=== PATIENT | female | born 1955 | race Caucasian/White ===

== ENCOUNTER → 2017-08-30 | Day surgery (SDC) | payer BC | LOC: MSO 07-26 07:46 | DX: Z12.11 Encounter for screening for malignant neoplasm of colon (principal); D12.8 Benign neoplasm of rectum; I10 Essential (primary) hypertension; F17.210 Nicotine dependence, cigarettes, uncomplicated; R12 Heartburn; E07.9 Disorder of thyroid, unspecified | CPT/HCPCS: 00810; J3010; J7120 ==

== ENCOUNTER 2018-03-31 08:39 | Emergency (ER) | payer BC ==
[~2018-03-31] VITALS: Ht 170.2 cm; Wt 95.9 kg
[2018-03-31] MEDS ORDERED: LEVOTHYROXINE100 MC1 PO (08:52)
[2018-03-31] MEDS ORDERED: AMLODIPINE BESYL5 MG PO (08:53)
[2018-03-31] MEDS ORDERED: ZOLPIDEM TART10 MG PO (08:53)
[2018-03-31] MEDS ORDERED: HCTZ 25MG25 MG PO (08:53)
[2018-03-31] MEDS ORDERED: CELEXA 20MG20 MG/TA1 PO (08:53)
[2018-03-31] MEDS ORDERED: ATORVASTATIN CA20 MG PO (08:53)
[2018-03-31] MEDS ORDERED: BENAZEPRIL40 MG PO (09:16)
[2018-03-31 09:45] LABS: EOS # 0.1 (0.04-0.40); EOS % 0.8 % (1.0-5.0); HEMATOCRIT 44.3 % (37.0-47.0); HEMOGLOBIN 14.2 g/dL (12.5-16.0); LYMPH# 1.9 (1.50-4.00); MEAN CELL VOLUME 99 fl (78-100); MEAN CORPUSCULAR HEMOGLOBIN 32 pg (27-31); MEAN CORPUSCULAR HGB CONC 32 g/dL (33-37); MEAN PLATELET VOLUME 9.6 fl (7.4-10.4); MONO # 0.8 (0.20-0.80); NEU # 5.7 (1.40-6.50); PLATELET COUNT 310 K/mm3 (130-400); RED BLOOD COUNT 4.46 M/mm3 (4.10-5.30); RED CELL DISTRIBUTION WIDTH 13.5 % (11.5-14.5); WHITE BLOOD COUNT 8.6 K/mm3 (4.8-10.8)
[2018-03-31 10:02] LABS: ALBUMIN 4.1 g/dL (3.5-5.0); BUN/CREATININE RATIO 24.3 (6.0-26.0); CALCIUM 9.8 mg/dL (8.4-10.2); TOTAL BILIRUBIN 0.6 mg/dL (0.2-1.3); TOTAL PROTEIN 7.4 g/dL (6.3-8.2)
[2018-03-31 10:06] LABS: URINE APPEARANCE CLEAR; URINE BILIRUBIN NEGATIVE (NEGATIVE); URINE BLOOD NEGATIVE (NEGATIVE); URINE COLOR YELLOW; URINE GLUCOSE NEGATIVE (NEGATIVE); URINE KETONE NEGATIVE (NEGATIVE); URINE LEUKOCYTE ESTERASE NEGATIVE (NEGATIVE); URINE NITRATE NEGATIVE (NEGATIVE); URINE PROTEIN(semi-quant) TRACE mg/dL (NEGATIVE); URINE UROBILINOGEN NORMAL (NORMAL); URINE WBC 0-1 /hpf (0-3)
[2018-03-31 10:07] LABS: URINE MUCUS PRESENT (NOT PRESENT)
[2018-03-31 10:09] LABS: CKMB ISOENZYME 1.3 ng/mL (0.6-3.5)
[2018-03-31 10:10] LABS: TROPONIN-I < 0.03 ng/mL (0.00-0.06)
[2018-03-31] MEDS ORDERED: CLONIDINE HYDR0.1 MG PO (13:03)
[2018-03-31] MEDS ORDERED: NORVASC 10MG10 MG PO (13:03)
[2018-03-31 13:11] VITALS: BP 134/82
== END 2018-03-31 13:08 | disposition home or self-care (01) ==
LOC: ED 08:39
PROVIDERS: Physician Assistant
DX: I10 Essential (primary) hypertension (principal); Z87.891 Personal history of nicotine dependence; Z79.899 Other long term (current) drug therapy; R39.89 Other symptoms and signs involving the genitourinary system

== ENCOUNTER → 2021-03-28 | Outpatient (CLI) | payer MEDICARE ==
[~2021-03-28] MED LIST: AMLODIPINE BESYL5 MG PO; ATORVASTATIN CA20 MG PO; BENAZEPRIL40 MG PO; CELEXA 20MG20 MG/TA1 PO; CLONIDINE HYDR0.1 MG PO; HCTZ 25MG25 MG PO; LEVOTHYROXINE100 MC1 PO; NORVASC 10MG10 MG PO; ZOLPIDEM TART10 MG PO
[2021-03-28 11:45] LABS: BASO # 0.04 (0.02-0.10); EOS # 0.34 (0.04-0.40); EOS % 3.2 % (1.0-5.0); HEMATOCRIT 40.3 % (37.0-47.0); HEMOGLOBIN 13.2 g/dL (12.5-16.0); LYMPH# 2.66 (1.50-4.00); MEAN CELL VOLUME 95 fl (78-100); MEAN CORPUSCULAR HEMOGLOBIN 31 pg (27-31); MEAN CORPUSCULAR HGB CONC 33 g/dL (33-37); MEAN PLATELET VOLUME 9.8 fl (7.4-10.4); MONO # 0.82 (0.20-0.80); NEU # 6.88 (1.40-6.50); PLATELET COUNT 328 K/mm3 (130-400); RED BLOOD COUNT 4.24 M/mm3 (4.10-5.30); RED CELL DISTRIBUTION WIDTH 12.2 % (11.5-14.5); WHITE BLOOD COUNT 10.8 K/mm3 (4.8-10.8)
[2021-03-28 11:56] LABS: ALBUMIN 3.8 g/dL (3.4-4.8); POTASSIUM 4.1 mmol/L (3.5-5.1)
[2021-03-28 11:57] LABS: CALCIUM 9.3 mg/dL (8.3-10.5)
[2021-03-28 11:59] LABS: TOTAL PROTEIN 6.9 g/dL (6.2-8.1)
[2021-03-28 12:00] LABS: TOTAL BILIRUBIN 0.5 mg/dL (0.2-1.2)
== END ==
LOC: RAD 11:31
PROVIDERS: Internal Medicine
DX: K57.32 Diverticulitis of large intestine without perforation or abscess without bleeding (principal); M51.86 Other intervertebral disc disorders, lumbar region
CPT/HCPCS: Q9967

== ENCOUNTER → 2021-04-03 | Outpatient (CLI) | payer MEDICARE | LOC: RAD 15:21 | DX: M51.36 Other intervertebral disc degeneration, lumbar region (principal); M48.061 Spinal stenosis, lumbar region without neurogenic claudication; M48.07 Spinal stenosis, lumbosacral region; M47.816 Spondylosis without myelopathy or radiculopathy, lumbar region | CPT/HCPCS: A9585 ==

== ENCOUNTER → 2021-04-24 | Outpatient (CLI) | payer MEDICARE | LOC: LAB 15:58 | DX: R35.0 Frequency of micturition (principal) ==

== ENCOUNTER → 2021-05-06 | Outpatient (CLI) | payer MEDICARE ==
[2021-05-06 10:02] LABS: ALBUMIN 3.9 g/dL (3.4-4.8); POTASSIUM 4.1 mmol/L (3.5-5.1)
[2021-05-06 10:03] LABS: CALCIUM 9.4 mg/dL (8.3-10.5)
[2021-05-06 10:07] LABS: TOTAL BILIRUBIN 0.2 mg/dL (0.2-1.2)
== END ==
LOC: LAB 09:34
PROVIDERS: Internal Medicine
DX: Z00.00 Encounter for general adult medical examination without abnormal findings (principal)

== ENCOUNTER → 2021-06-21 | Outpatient (CLI) | payer MEDICARE | LOC: LAB 14:54 | DX: R05 Cough (principal); Z20.822 Contact with and (suspected) exposure to COVID-19 ==

== ENCOUNTER → 2021-07-14 | Outpatient (CLI) | payer MEDICARE | LOC: CARDLAB 11:34 → CARDREHAB 11:34 → CARDLAB 11:38 | DX: G47.19 Other hypersomnia (principal) | CPT/HCPCS: G0399 ==

== ENCOUNTER → 2021-12-01 | Outpatient (CLI) | payer MEDICARE ==
[2021-12-01 17:23] LABS: BASO # 0.03 K/mm3 (0.02-0.10); EOS # 0.37 K/mm3 (0.04-0.40); EOS % 4.4 % (1.0-5.0); HEMATOCRIT 38.5 % (37.0-47.0); HEMOGLOBIN 12.7 g/dL (12.5-16.0); LYMPH# 2.99 K/mm3 (1.50-4.00); MEAN CELL VOLUME 94 fl (78-100); MEAN CORPUSCULAR HEMOGLOBIN 31 pg (27-31); MEAN CORPUSCULAR HGB CONC 33 g/dL (33-37); MEAN PLATELET VOLUME 9.6 fl (7.4-10.4); MONO # 0.81 K/mm3 (0.20-0.80); PLATELET COUNT 320 K/mm3 (130-400); RED BLOOD COUNT 4.08 M/mm3 (4.10-5.30); WHITE BLOOD COUNT 8.5 K/mm3 (4.8-10.8)
[2021-12-01 17:31] LABS: ALBUMIN 4.1 g/dL (3.4-4.8); POTASSIUM 3.8 mmol/L (3.5-5.1)
[2021-12-01 17:32] LABS: CALCIUM 10.3 mg/dL (8.3-10.5)
[2021-12-01 17:35] LABS: TOTAL BILIRUBIN 0.4 mg/dL (0.2-1.2)
== END ==
LOC: LAB 17:06
PROVIDERS: Internal Medicine
DX: I10 Essential (primary) hypertension (principal); K90.9 Intestinal malabsorption, unspecified; E78.2 Mixed hyperlipidemia; F41.9 Anxiety disorder, unspecified; G47.00 Insomnia, unspecified; G47.33 Obstructive sleep apnea (adult) (pediatric); R73.03 Prediabetes; Z86.39 Personal history of other endocrine, nutritional and metabolic disease

== ENCOUNTER → 2022-01-12 | Outpatient (CLI) | payer MEDICARE ==
[2022-01-12 17:03] LABS: ALBUMIN 4.2 g/dL (3.4-4.8); POTASSIUM 3.9 mmol/L (3.5-5.1)
[2022-01-12 17:04] LABS: CALCIUM 9.8 mg/dL (8.3-10.5)
[2022-01-12 17:06] LABS: TOTAL PROTEIN 7.1 g/dL (6.2-8.1)
[2022-01-12 17:08] LABS: TOTAL BILIRUBIN 0.3 mg/dL (0.2-1.2)
== END ==
LOC: LAB 16:28
PROVIDERS: Internal Medicine
DX: I10 Essential (primary) hypertension (principal); E78.2 Mixed hyperlipidemia; F41.9 Anxiety disorder, unspecified; G47.00 Insomnia, unspecified; G47.33 Obstructive sleep apnea (adult) (pediatric); K90.9 Intestinal malabsorption, unspecified; R73.03 Prediabetes; Z86.39 Personal history of other endocrine, nutritional and metabolic disease

== ENCOUNTER → 2022-04-11 | Outpatient (CLI) | payer MEDICARE | LOC: LAB 12:09 | DX: Z20.822 Contact with and (suspected) exposure to COVID-19 (principal) ==

== ENCOUNTER → 2022-11-27 | Outpatient (CLI) | payer MEDICARE | LOC: RAD 14:25 | DX: M71.22 Synovial cyst of popliteal space [Baker], left knee (principal) ==

== ENCOUNTER → 2023-10-12 | Outpatient (CLI) | payer MEDICARE ==
[~2023-10-12] MED LIST changes: +MACROBID 100 M100 MG PO; +METOPROLOL SUCC25 M1 PO; +ROSUVASTATIN CA20 MG PO
== END ==
LOC: LAB 17:03
DX: N39.0 Urinary tract infection, site not specified (principal)

== ENCOUNTER 2024-06-01 15:09 | Emergency (ER) | payer OTHER, MEDICARE ==
[~2024-06-01] VITALS: Ht 175.3 cm; Wt 119.9 kg
[2024-06-01 17:28] VITALS: BP 155/89
== END 2024-06-01 17:20 | disposition home or self-care (01) ==
LOC: ED 15:09
DX: S63.615A Unspecified sprain of left ring finger, initial encounter (principal); W19.XXXA Unspecified fall, initial encounter; Y92.89 Other specified places as the place of occurrence of the external cause; Y99.0 Civilian activity done for income or pay